=== PATIENT | male | born 1970 | race Caucasian/White ===

== ENCOUNTER 2022-12-07 14:17 | Emergency (ER) | payer OTHER, BC ==
[2022-12-07 14:34] VITALS: BP 139/103; PULSE 108; RESP 16; TEMP 99.5; BMI 33.9
== END 2022-12-07 15:31 | disposition home or self-care (01) ==
LOC: FER 14:17
DX: S09.90XD Unspecified injury of head, subsequent encounter (principal); R42 Dizziness and giddiness; W21.02XD Struck by soccer ball, subsequent encounter
CPT/HCPCS: 99282-25

== ENCOUNTER 2022-12-12 11:39 | Emergency (ER) | payer OTHER, BC ==
[2022-12-12 11:48] VITALS: BP 149/87; PULSE 98; RESP 18; TEMP 97.8; BMI 33.0
== END 2022-12-12 14:35 | disposition home or self-care (01) ==
LOC: FER 11:39
DX: S09.90XA Unspecified injury of head, initial encounter (principal); R42 Dizziness and giddiness; W21.02XA Struck by soccer ball, initial encounter; Y93.66 Activity, soccer
CPT/HCPCS: 70450-TC; 99284-25